=== PATIENT | female | born 1960 | race Caucasian/White ===

== ENCOUNTER → 2016-12-17 | Outpatient (CLI) | payer BC ==
[~2016-12-17] MED LIST: GABA-586 PO; IOHEXOL 240 MG/ML 50ML VIAL. PO ONE; LEVO175T5 PO
--- NOTE | 2016-12-18 09:25 | RAD ---
Indication: Rectal cancer. Technique: Axial images and coronal and sagittal reformatted images are provided. Oral contrast was administered. Lack of IV contrast limits evaluation. Comparison is from December 14, 2015. One or more of the following individualized dose reduction techniques were utilized for this examination: 1. Automated exposure control 2. Adjustment of the mA and/or kV according to patient size 3. Use of iterative reconstruction technique Findings: Chest: Calcified granulomas in the right costophrenic sulcus are stable. 3 mm nodule on the left may be intrafissural lymph node on image 29. This is stable. No new worrisome soft tissue nodule is identified. There is no consolidation. There is minimal dependent atelectasis. There is no pleural effusion. Central airways are patent. Calcified left hilar lymph nodes are noted. There is no definite hilar or mediastinal adenopathy on this exam without IV contrast. Heart is not enlarged. There are mild degenerative changes in the spine. Abdomen: There is fatty infiltration of the liver. Gallbladder is unremarkable. Benign calcifications are noted in the spleen. The pancreas and the adrenals are unremarkable. There is no urolithiasis. There is no mesenteric or retroperitoneal adenopathy. Aorta is normal caliber. There is no small bowel obstruction or mural thickening. Left lower quadrant colostomy is noted. There are a few diverticula in the colon, no findings of diverticulitis. Pelvis: Presacral soft tissue has similar appearance to prior. Bladder is decompressed. Calcified phleboliths are noted. No definite pelvic adenopathy is apparent. There are mild degenerative changes in the spine. Evaluation is limited without IV contrast. Impression: 1. Pulmonary nodule versus intrafissural lymph node is stable. No evidence of metastatic disease within the chest. 2. Findings of previous partial colectomy and colostomy. 3. No evidence of metastatic disease or local recurrence within the abdomen or pelvis. 4. Fatty infiltration of the liver. 5. Diverticulosis in the remaining colon.
== END | disposition home or self-care (01) ==
LOC: CT 16:28
PROVIDERS: ATTEND Internal Medicine Hematology & Oncology
DX: C20 Malignant neoplasm of rectum (principal); K76.0 Fatty (change of) liver, not elsewhere classified; K57.30 Diverticulosis of large intestine without perforation or abscess without bleeding
CPT/HCPCS: 71250; 74176; Q9966

== ENCOUNTER → 2018-01-15 | Outpatient (CLI) | payer BC ==
[2018-01-15] MEDS: IOHEXOL 240 MG/ML 50ML VIAL. PO (08:45)
== END | disposition home or self-care (01) ==
LOC: CT 08:17
DX: C20 Malignant neoplasm of rectum (principal)
CPT/HCPCS: 71250; 74176; Q9966